=== PATIENT | female | born 1955 | race Caucasian/White ===

== ENCOUNTER 2023-09-28 07:32 | Outpatient (RCR) | payer MEDICARE, MEDICAID, SELFPAY ==
[2023-09-28] MEDS: MITOMYCIN 40 MG in WATER FOR INJECTION,STERILE 20 ML 20 MG INTRAVESIC (13:07)
[2023-09-28 13:44] VITALS: BP 149/77; PULSE 80; RESP 16; TEMP 36.6; O2SAT 96
--- NOTE | 2023-09-28 13:46 | PC.NURSE ---
1240: Pt. to [facility] amb. Seated at side of bed. Consent forms reviewed with patient, denies questions. Consent obtained. VSS. Using sterile technique, #16Fr. mao cath inserted on first attempt with immediate return of clear yellow urine. Pt. tolerated with minimal c/o discomfort. 1310: Mao drainage bag removed at this time. Closed system transfer device placed in mao cath. Mitomycin 40mg instilled into bladder. Pt. instructed to turn side to side and front to back every 15min. x's 1 hour as ordered. Pt. relays understanding. 1325: Pt. turning as instructed. Denies c/o burning or irritation in perineum. 1345: Pt. without change. Denies c/o discomfort or needs.
[2023-09-28 14:25] VITALS: BP 179/82; PULSE 79; RESP 18; TEMP 36.6; O2SAT 98
--- NOTE | 2023-09-28 14:26 | PC.NURSE ---
1410: Treatment completed. Drainage bag re-connected to mao cath. Bladder drained for 400cc pale purple urine. Catheter removed. Pt. tolerated without c/o. Pt. given d/c instructions regarding home care post procedure. Pt. relays understanding. 1420: Pt d/c'd amb to home.
== END 2023-10-19 23:59 | disposition home or self-care (01) ==
LOC: INF 07:32
PROVIDERS: PCP Nurse Practitioner Family; Visit Provider Urology
DX: Z85.51 Personal history of malignant neoplasm of bladder (principal)
CPT/HCPCS: 51700; J9280

== ENCOUNTER 2023-10-26 07:34 | Outpatient (RCR) | payer MEDICARE, MEDICAID, SELFPAY ==
[2023-10-26] MEDS: MITOMYCIN 40 MG in WATER FOR INJECTION,STERILE 20 ML 20 MG INTRAVESIC (13:15)
[2023-10-26 13:23] VITALS: BP 121/68; PULSE 99; RESP 18; TEMP 36.6; O2SAT 96
--- NOTE | 2023-10-26 13:26 | PC.NURSE ---
1255: Pt. to [facility] amb. for Mitomycin bladder treatment. VSS. Consent obtained, denies questions. Pt. to supine position on bed. Using sterile technique, #16 Fr. mao cath inserted into bladder with immediate return of 400ml of clear yellow urine. Pt. tolerated with minimal c/o discomfort. 1315: Mao drainage bag removed from mao cath. Mitomycin 40mg instilled into bladder. Bladder clamped. Instructed pt to turn side to side and front to back every 15min. x 1hour. Pt. relays understanding. Given I-pad tabet to watch t.v. Denies needs.
--- NOTE | 2023-10-26 14:31 | PC.NURSE ---
1330: Pt. tolerating med. without c/o burning or pain. Denies needs. 1400: Cont. to turn as instructed. Relays feeling full . Encouraged pt. to allow med to dwell for 15 more minutes. Pt. relays understanding. 1415: Therapy completed at this time. Drainage bag applied, bladder emptied for 600cc pale purple urine. Pt. relayed drinking tons of coffee earlier. Reminded pt. not to drink 4hrs prior to bladder treatment as it dilutes the med in the bladder. Pt. states she forgot . Daley d/c'd. No redness or irritation observed. Pt. tolerates with min. c/o discomfort. 1420:Pt. reminded of home care instructions, relays understanding. d/c'd amb to home.
== END 2023-10-26 15:00 | disposition home or self-care (01) ==
LOC: INF 07:34
PROVIDERS: PCP Nurse Practitioner Family; Visit Provider Urology
DX: Z85.51 Personal history of malignant neoplasm of bladder (principal)
CPT/HCPCS: 51700; J9280

== ENCOUNTER 2023-11-23 07:22 | Outpatient (RCR) | payer MEDICARE, MEDICAID, SELFPAY ==
[2023-11-23 13:11] VITALS: BP 133/79; PULSE 78; RESP 16; TEMP 36.4; O2SAT 98
[2023-11-23] MEDS: MITOMYCIN 40 MG in WATER FOR INJECTION,STERILE 20 ML 20 MG INTRAVESIC (13:19)
--- NOTE | 2023-11-23 13:32 | PC.NURSE ---
1250: Pt. to [facility] amb. for bladder instillation of Mitomycin.Seated at side of bed. VSS. Consent form reviewed and obtained. Denies questions. Pt. to supine position on bed. Using sterile technique, #16 Fr. mao cath. inserted into bladder with immediate return of 300 ml clear yellow urine. Pt. tolerated with no c/o. 1319: Mao drainage bag removed. Chemo connector inserted. Bladder instilled with Mitomycin 40mg/20 mL. Instructed pt. to turn side to side and front to back every 15min. x's 1hr. Pt. relays understanding. Given I-pad to watch T.V. Denies needs.
--- NOTE | 2023-11-23 13:40 | PC.NURSE ---
Pt. without c/o. Turning as instructed. Denies c/o burning or irritation to carmen area or bladder. Warm blankets provided.
[2023-11-23 14:30] VITALS: BP 138/70; PULSE 69; RESP 16; O2SAT 98
--- NOTE | 2023-11-23 14:30 | PC.NURSE ---
1420: Treatment completed at this time. Daley drainage bag reconnected and bladder drained for 400 ML pale, clear purple urine. Daley removed. Pt. without c/o burning or pain. No redness or irritation observed to carmen area. Pt. tolerated all without c/o. VSS. 1436: Reminded pt of home care precautions, verbalizes understanding. Pt. d/c'd amb. to home.
== END 2023-12-20 23:59 | disposition home or self-care (01) ==
LOC: INF 07:22
PROVIDERS: PCP Nurse Practitioner Family; Visit Provider Urology
DX: Z85.51 Personal history of malignant neoplasm of bladder (principal)
CPT/HCPCS: 51700; J9280

== ENCOUNTER 2025-09-18 11:51 | Outpatient (RCR) | payer MEDICARE, MEDICAID, SELFPAY ==
[2025-09-18 11:56] VITALS: BP 127/94; PULSE 92; TEMP 36; O2SAT 96
--- NOTE | 2025-09-18 13:27 | PC.NURSE ---
1233: Daley drainage bag removed. Mitomycin 40mg instilled into bladder via catheter. Catheter plugged. Instructed pt. to turn side to side and front to back every 15min x 1hour. Pt. relays understanding. 1245: Pt. without c/o. Denies needs.
== END 2025-09-19 23:59 | disposition home or self-care (01) ==
LOC: INF 11:51
PROVIDERS: PCP Nurse Practitioner Family; Visit Provider Urology
DX: Z85.51 Personal history of malignant neoplasm of bladder (principal)
CPT/HCPCS: 51720; J9281

== ENCOUNTER 2025-10-27 11:51 | Outpatient (RCR) | payer MEDICARE, MEDICAID, SELFPAY ==
[2025-10-27 12:08] VITALS: BP 162/84; PULSE 85; TEMP 35.7; O2SAT 98
--- NOTE | 2025-10-27 12:25 | PC.NURSE ---
1215 #16 mohawk mao catheter inserted per Jaz Stark Rn under sterile technique. returned clear yellow urine. balloon inflated with 10 ml of sterile saline, patient tolerated well. Patient educated on mitomycin instillation, turning schedule etc. verbalizes understanding. Consent sighned.
--- NOTE | 2025-10-27 13:28 | PC.NURSE ---
1247 mitomycin instilled via mao catheter. tolerated well. positioned to left side. 1300 positioned to right side, patient tolerating well. 1315 positioned to right side.
--- NOTE | 2025-10-27 13:52 | PC.NURSE ---
1345 repositioned to left side,tolerating well. offers no complaints
== END 2025-11-19 23:59 | disposition home or self-care (01) ==
LOC: INF 11:51
PROVIDERS: PCP Nurse Practitioner Family; Visit Provider Urology
DX: Z85.51 Personal history of malignant neoplasm of bladder (principal)
CPT/HCPCS: 51720; J9281